=== PATIENT | male | born 1995 | race Caucasian/White ===

== ENCOUNTER 2020-07-24 08:30 | Emergency (ER) | payer SELFPAY ==
[~2020-07-24] VITALS: Ht 167.6 cm; Wt 65.9 kg
[2020-07-24] MEDS ORDERED: KETOROLAC TROMETHAMINE 60 MG/2 ML VIAL IM ONE (10:15)
[2020-07-24 11:00] VITALS: BP 127/75
== END 2020-07-24 11:30 | disposition home or self-care (01) ==
LOC: EMS 08:39
DX: M25.511 Pain in right shoulder (principal); W21.02XA Struck by soccer ball, initial encounter; Y93.66 Activity, soccer; Y92.89 Other specified places as the place of occurrence of the external cause; Y99.8 Other external cause status
CPT/HCPCS: 73030; 96372; 99283; J1885